=== PATIENT | female | born 1935 | race Caucasian/White ===

== ENCOUNTER 2018-11-09 07:37 | Emergency (ER) | payer MEDICARE ==
[~2018-11-09] VITALS: Ht 162.6 cm; Wt 60.2 kg
[2018-11-09 08:30] LABS: BASO # 0.1 10^3/uL (0.0-0.2); BASO % 1.5 % (0.0-1.0); EOS # 0.1 10^3/uL (0.0-0.50); EOS % 1.8 % (0.0-3.0); HEMATOCRIT 41.6 % (36.0-47.0); HEMOGLOBIN 13.7 g/dl (12.0-15.5); LYMPH # 1.2 10^3/uL (1.5-4.5); LYMPH % 14.8 % (24.0-44.0); MEAN CORPUSCULAR HGB CONC 32.9 g/dl (32.0-36.5); MEAN CORPUSCULAR VOLUME 106.4 fl (80.0-96.0); MONO # 0.5 10^3/uL (0.0-0.8); MONO % 5.9 % (0.0-5.0); NEUTROPHILS # 5.7 10^3/uL (1.8-7.7); NEUTROPHILS % 73.9 % (36.0-66.0); PLATELET COUNT, AUTOMATED 498 10^3/uL (150-450); RED BLOOD COUNT 3.91 10^6/uL (4.00-5.40); WHITE BLOOD COUNT 7.8 10^3/uL (4.0-10.0)
[2018-11-09] MEDS ORDERED: ASPI81CH33 PO (08:34)
[2018-11-09] MEDS ORDERED: LOSA50TA88 PO ×2 (08:34)
[2018-11-09] MEDS ORDERED: AMIO200T PO (08:34)
[2018-11-09 08:40] LABS: INR 0.97; PROTHROMBIN TIME 12.6 SECONDS (11.8-14.0)
--- NOTE | 2018-11-09 08:59 | REP ---
PA and lateral chest: There are no comparisons. Lung larsen are clear. Cardiac size is upper normal. There are sternotomy wires. There are bilateral shoulder arthroplasties. The bashir, mediastinum, skeletal structures are unremarkable. Impression: There are no acute cardiopulmonary findings. Electronically Signed by Giovany Rivera MD 11/09/2018 08:50 A
[2018-11-09 09:03] LABS: ALBUMIN 3.8 GM/DL (3.2-5.2); ALT/SGPT 18 U/L (12-78); BILIRUBIN,DIRECT 0.2 MG/DL (0.0-0.2); BILIRUBIN,TOTAL 0.9 MG/DL (0.2-1.0); BLOOD UREA NITROGEN 18 MG/DL (7-18); CALCIUM LEVEL 9.4 MG/DL (8.8-10.2); CARBON DIOXIDE LEVEL 25 MEQ/L (21-32); CHLORIDE LEVEL 108 MEQ/L (98-107); CK-MB VALUE MASS 1.2 NG/ML (<3.6); CPK CREATINE PHOSPHOKINASE 90 U/L (26-192); CREATININE FOR GFR 0.93 MG/DL (0.55-1.30); GLOMERULAR FILTRATION RATE > 60.0 (>32); GLUCOSE, FASTING 99 MG/DL (70-100); MB/CK RELATIVE INDEX 1.33 (< OR =4); POTASSIUM SERUM 4.7 MEQ/L (3.5-5.1); SODIUM LEVEL 141 MEQ/L (136-145); TOTAL PROTEIN 6.9 GM/DL (6.4-8.2); TROPONIN I < 0.02 NG/ML (< 0.10)
[2018-11-09] MEDS ORDERED: amLODIPine 5 MG TAB PO ONE (09:15)
[2018-11-09 09:18] VITALS: BP 197/84
--- NOTE | 2018-11-09 11:18 | REP ---
CT of the brain without IV contrast: There are no comparisons. There is no hemorrhage. There is no edema, mass effect or midline shift. The cortical stripe is unremarkable. There is mild enlargement of the ventricles and sulci compatible with diffuse volume loss. The visualized paranasal sinuses and mastoid air cells are clear. Impression: There is no hemorrhage, acute infarct or mass. Diffuse volume loss. Electronically Signed by Giovany Rivera MD 11/09/2018 11:10 A
[2018-11-09 11:59] VITALS: BP 159/77
[2018-11-09] MEDS ORDERED: NORV5TAB PO (12:01)
--- NOTE | 2018-11-10 06:53 | ECGEPIP ---
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
== END 2018-11-09 12:12 | disposition home or self-care (01) ==
LOC: M ED 07:37
DX: I10 Essential (primary) hypertension (principal); I48.91 Unspecified atrial fibrillation; E78.5 Hyperlipidemia, unspecified; Z79.82 Long term (current) use of aspirin; Z79.899 Other long term (current) drug therapy; Z88.0 Allergy status to penicillin; Z91.89 Other specified personal risk factors, not elsewhere classified

== ENCOUNTER 2018-11-11 15:48 | Emergency (ER) | payer MEDICARE ==
[~2018-11-11] VITALS: Ht 162.6 cm; Wt 59.1 kg
[~2018-11-11 15:48] MED LIST: AMIO200T PO; ASPI81CH33 PO; LOSA50TA88 PO; NORV5TAB PO
--- NOTE | 2018-11-11 16:35 | REP ---
Clinical: Hypertension. Possible CHF. Comparison: 11/09/2018 . Technique: PA and lateral. Findings: Evidence of prior sternotomy. Cardiac silhouette is stable. The lung larsen are clear and without acute consolidation, effusion, or pneumothorax. The skeletal structures are intact and normal. Impression: 1. No acute cardiopulmonary process. Electronically Signed by Johnathon Rivas MD 11/11/2018 04:27 P
[2018-11-11] MEDS ORDERED: AMLO10TA5 PO (16:41)
[2018-11-11] MEDS ORDERED: DITR5TAB PO (16:43)
[2018-11-11] MEDS ORDERED: FURO20TA2 PO (16:43)
[2018-11-11 16:52] LABS: BASO # 0.1 10^3/uL (0.0-0.2); BASO % 1.3 % (0.0-1.0); EOS % 0.2 % (0.0-3.0); HEMATOCRIT 43.4 % (36.0-47.0); HEMOGLOBIN 14.8 g/dl (12.0-15.5); LYMPH # 1.2 10^3/uL (1.5-4.5); LYMPH % 13.4 % (24.0-44.0); MEAN CORPUSCULAR HEMOGLOBIN 35.4 pg (27.0-33.0); MEAN CORPUSCULAR HGB CONC 34.1 g/dl (32.0-36.5); MEAN CORPUSCULAR VOLUME 103.8 fl (80.0-96.0); MONO # 0.5 10^3/uL (0.0-0.8); MONO % 5.9 % (0.0-5.0); NEUTROPHILS # 6.9 10^3/uL (1.8-7.7); NEUTROPHILS % 77.2 % (36.0-66.0); PLATELET COUNT, AUTOMATED 489 10^3/uL (150-450); RED BLOOD COUNT 4.18 10^6/uL (4.00-5.40); WHITE BLOOD COUNT 8.9 10^3/uL (4.0-10.0)
[2018-11-11 17:19] LABS: INR 1.03; PARTIAL THROMBOPLASTIN TIME 21.3 SECONDS (25.0-38.4); PROTHROMBIN TIME 13.2 SECONDS (11.8-14.0)
[2018-11-11 18:35] LABS: ALBUMIN 3.8 GM/DL (3.2-5.2); ALT/SGPT 20 U/L (12-78); BILIRUBIN,DIRECT 0.3 MG/DL (0.0-0.2); BILIRUBIN,TOTAL 0.7 MG/DL (0.2-1.0); BLOOD UREA NITROGEN 15 MG/DL (7-18); CALCIUM LEVEL 9.6 MG/DL (8.8-10.2); CARBON DIOXIDE LEVEL 26 MEQ/L (21-32); CHLORIDE LEVEL 104 MEQ/L (98-107); CK-MB VALUE MASS 2.6 NG/ML (<3.6); CPK CREATINE PHOSPHOKINASE 107 U/L (26-192); CREATININE FOR GFR 0.83 MG/DL (0.55-1.30); GLOMERULAR FILTRATION RATE > 60.0 (>32); GLUCOSE, FASTING 94 MG/DL (70-100); MB/CK RELATIVE INDEX 2.43 (< OR =4); POTASSIUM SERUM 4.7 MEQ/L (3.5-5.1); SODIUM LEVEL 138 MEQ/L (136-145); TROPONIN I < 0.02 NG/ML (< 0.10)
[2018-11-11 18:52] LABS: APPEARANCE, URINE CLEAR (CLEAR); BACTERIA, URINE AUTO 1+ (NEGATIVE); BILIRUBIN, URINE AUTO NEGATIVE (NEGATIVE); BLOOD, URINE BLOOD NEGATIVE (NEGATIVE); COLOR, URINE YELLOW (YELLOW); GLUCOSE, URINE (UA) AUTO NEGATIVE (NEGATIVE); KETONE, URINE AUTO TRACE mg/dL (NEGATIVE); LEUKOCYTE ESTERASE, URINE AUTO TRACE (NEGATIVE); MUCUS, URINE SMALL (NEGATIVE); NITRITE, URINE AUTO NEGATIVE (NEGATIVE); PROTEIN, URINE AUTO NEGATIVE (NEGATIVE); RBC, URINE AUTO 3 /HPF (0-3); SQUAMOUS EPITHELIAL CELL UR AU 0 /HPF (0-6); UROBILINOGEN, URINE AUTO 0.2 mg/dL (0.0-2.0); WBC, URINE AUTO 4 /HPF (0-3)
--- NOTE | 2018-11-11 18:56 | REP ---
Clinical: Right-sided chest pain. Rib pain. Technique: Axial noncontrast images from the thoracic inlet to the upper abdomen coronal and sagittal re-formations. Comparison: None. Findings: The bilateral lung larsen are relatively well aerated and essentially clear. Minimal scattered age-related interstitial changes are suggested along with mild bronchiectasis. No acute consolidation, significant nodule or mass lesion appreciated. No pleural effusion. No pneumothorax. No obvious adenopathy. Atherosclerotic changes to the thoracic aorta and coronary arteries noted. No significant pericardial effusion. Small hiatal hernia identified at the gastroesophageal junction. Surrounding musculoskeletal structures without acute abnormality. Evidence for prior bilateral shoulder replacement and sternotomy. Impression: 1. No acute mediastinal or pleuroparenchymal process appreciated. 2. Minimal chronic parenchymal changes. 3. Atherosclerotic changes to the thoracic aorta and coronary arteries. Mild cardiomegaly. 4. Osseous structures without evidence for acute process. Electronically Signed by Johnathon Rivas MD 11/11/2018 06:48 P
[2018-11-11] MEDS ORDERED: LOSARTAN 25 MG TAB PO ONE (19:45)
[2018-11-11] MEDS ORDERED: amLODIPine 5 MG TAB PO ONE (19:45)
[2018-11-11] MEDS ORDERED: TRAM50TA2 PO (19:59)
[2018-11-11] MEDS ORDERED: AMLO5TAB6 PO (19:59)
[2018-11-11] MEDS ORDERED: traMADol 50 MG TAB PO ONE (20:00)
[2018-11-11 21:01] VITALS: BP 178/82
[2018-11-11 21:10] VITALS: BP 180/90
--- NOTE | 2018-11-12 21:27 | ECGEPIP ---
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
== END 2018-11-11 21:29 | disposition home or self-care (01) ==
LOC: M ED 15:48 → EDBD 15:48 → M ED 21:29
DX: I10 Essential (primary) hypertension (principal); R07.89 Other chest pain; E78.5 Hyperlipidemia, unspecified; I48.91 Unspecified atrial fibrillation; M81.0 Age-related osteoporosis without current pathological fracture; Z79.899 Other long term (current) drug therapy; Z79.82 Long term (current) use of aspirin

== ENCOUNTER → 2020-10-11 | Outpatient (REF) | payer MEDICARE ==
[~2020-10-11] MED LIST changes: -AMIO200T PO; +AMIO200T3 PO; +AMLO1TAB24 PO; +AMLO1TAB25 PO; +DITR5TAB PO; +FURO20TA2 PO; +TRAM50TA2 PO
== END ==
LOC: M LAB REF 16:26
PROVIDERS: ATTEND Internal Medicine
DX: R71.8 Other abnormality of red blood cells (principal)

== ENCOUNTER 2021-02-19 08:14 | Emergency (ER) | payer MEDICARE ==
[~2021-02-19] VITALS: Ht 162.6 cm; Wt 60.0 kg
[2021-02-19 09:08] LABS: BASO # 0.2 10^3/uL (0.0-0.2); EOS # 0.2 10^3/uL (0.0-0.5); EOS % 2.4 % (0.0-3.0); HEMATOCRIT 44.2 % (36.0-47.0); HEMOGLOBIN 14.9 g/dl (12.0-15.5); LYMPH # 1.1 10^3/uL (1.5-5.0); LYMPH % 13.7 % (24.0-44.0); MEAN CORPUSCULAR HEMOGLOBIN 34.2 pg (27.0-33.0); MEAN CORPUSCULAR HGB CONC 33.7 g/dl (32.0-36.5); MEAN CORPUSCULAR VOLUME 101.4 fl (80.0-96.0); MONO # 0.4 10^3/uL (0.0-0.8); MONO % 5.6 % (2.0-8.0); NEUTROPHILS # 5.6 10^3/uL (1.5-8.5); PLATELET COUNT, AUTOMATED 596 10^3/uL (150-450); RED BLOOD COUNT 4.36 10^6/uL (4.00-5.40); WHITE BLOOD COUNT 7.6 10^3/uL (4.0-10.0)
[2021-02-19] MEDS ORDERED: cloNIDine 0.2 MG TAB PO ONE (10:30)
[2021-02-19 10:55] LABS: ALBUMIN 3.7 GM/DL (3.2-5.2); ALT/SGPT 20 U/L (12-78); BILIRUBIN,DIRECT 0.3 MG/DL (0.0-0.2); BILIRUBIN,TOTAL 0.9 MG/DL (0.2-1.0); BLOOD UREA NITROGEN 18 MG/DL (7-18); CALCIUM LEVEL 9.4 MG/DL (8.8-10.2); CARBON DIOXIDE LEVEL 28 MEQ/L (21-32); CHLORIDE LEVEL 108 MEQ/L (98-107); CREATININE FOR GFR 0.88 MG/DL (0.55-1.30); GLOMERULAR FILTRATION RATE > 60.0 (>32); GLUCOSE, FASTING 101 MG/DL (70-100); POTASSIUM SERUM 4.4 MEQ/L (3.5-5.1); SODIUM LEVEL 141 MEQ/L (136-145); TOTAL PROTEIN 6.6 GM/DL (6.4-8.2)
[2021-02-19 11:31] LABS: APPEARANCE, URINE CLEAR (CLEAR); BACTERIA, URINE AUTO 1+ (NEGATIVE); BILIRUBIN, URINE AUTO NEGATIVE (NEGATIVE); BLOOD, URINE BLOOD 1+ (NEGATIVE); COLOR, URINE YELLOW (YELLOW); GLUCOSE, URINE (UA) AUTO NEGATIVE (NEGATIVE); KETONE, URINE AUTO NEGATIVE (NEGATIVE); LEUKOCYTE ESTERASE, URINE AUTO NEGATIVE (NEGATIVE); MUCUS, URINE SMALL (NEGATIVE); NITRITE, URINE AUTO NEGATIVE (NEGATIVE); PROTEIN, URINE AUTO NEGATIVE (NEGATIVE); RBC, URINE AUTO 1 /HPF (0-3); SPECIFIC GRAVITY URINE AUTO 1.008 (1.002-1.035); SQUAMOUS EPITHELIAL CELL UR AU 0 /HPF (0-6); UROBILINOGEN, URINE AUTO 0.2 mg/dL (0.0-2.0); WBC, URINE AUTO 1 /HPF (0-3)
[2021-02-19 11:34] VITALS: BP 176/76
[2021-02-19 13:00] VITALS: BP 124/64
--- NOTE | 2021-02-19 20:40 | ECGEPIP ---
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
== END 2021-02-19 13:31 | disposition home or self-care (01) ==
LOC: M ED 08:14
DX: R00.1 Bradycardia, unspecified (principal); I10 Essential (primary) hypertension; I48.91 Unspecified atrial fibrillation; E78.5 Hyperlipidemia, unspecified; I25.10 Atherosclerotic heart disease of native coronary artery without angina pectoris; Z95.1 Presence of aortocoronary bypass graft; Z88.2 Allergy status to sulfonamides; Z79.899 Other long term (current) drug therapy; Z79.82 Long term (current) use of aspirin

== ENCOUNTER 2021-10-05 10:33 | Emergency (ER) | payer MEDICARE ==
[~2021-10-05] VITALS: Ht 162.6 cm; Wt 56.4 kg
[~2021-10-05 10:33] MED LIST changes: -AMIO200T3 PO; +AMIO200T49 PO; +LOSA50TA28 PO; -LOSA50TA88 PO
[2021-10-05] MEDS ORDERED: ATOR1TAB19 (10:42)
[2021-10-05] MEDS ORDERED: HYDR500C3 (10:43)
[2021-10-05 14:47] LABS: BASO # 0.1 10^3/uL (0.0-0.2); BASO % 0.9 % (0.0-1.0); EOS % 0.2 % (0.0-3.0); HEMATOCRIT 42.3 % (36.0-47.0); HEMOGLOBIN 14.4 g/dl (12.0-15.5); LYMPH # 0.8 10^3/uL (1.5-5.0); LYMPH % 12.6 % (24.0-44.0); MEAN CORPUSCULAR HEMOGLOBIN 39.3 pg (27.0-33.0); MONO # 0.3 10^3/uL (0.0-0.8); MONO % 5.3 % (2.0-8.0); NEUTROPHILS # 5.1 10^3/uL (1.5-8.5); NEUTROPHILS % 79.7 % (36.0-66.0); PLATELET COUNT, AUTOMATED 357 10^3/uL (150-450); RED BLOOD COUNT 3.66 10^6/uL (4.00-5.40); WHITE BLOOD COUNT 6.4 10^3/uL (4.0-10.0)
[2021-10-05 14:58] LABS: PROTHROMBIN TIME 13.6 SECONDS (12.7-14.5)
[2021-10-05 14:59] LABS: PARTIAL THROMBOPLASTIN TIME 30.1 SECONDS (25.9-37.0)
[2021-10-05 15:01] LABS: MEAN CORPUSCULAR VOLUME 115.6 fl (80.0-96.0)
[2021-10-05 15:09] LABS: CK-MB VALUE MASS 2.9 NG/ML (<3.6); MB/CK RELATIVE INDEX 2.34 (< OR =4)
[2021-10-05 15:17] LABS: MAGNESIUM LEVEL 2.2 MG/DL (1.8-2.4); THYROID STIMULATING HORMONE 2.38 uIU/ML (0.358-3.740); THYROXINE (T4) 16.5 UG/DL (4.5-12.0)
[2021-10-05 15:20] LABS: RSV AMPLIFICATION NEGATIVE (NEGATIVE)
[2021-10-05] MEDS ORDERED: NS 500 ML IV ONE (15:30)
[2021-10-05 15:35] LABS: PLATELET ESTIMATE NORMAL (NORMAL)
[2021-10-05 16:00] LABS: APPEARANCE, URINE CLEAR (CLEAR); BACTERIA, URINE AUTO NEGATIVE (NEGATIVE); BILIRUBIN, URINE AUTO NEGATIVE (NEGATIVE); BLOOD, URINE BLOOD NEGATIVE (NEGATIVE); COLOR, URINE YELLOW (YELLOW); GLUCOSE, URINE (UA) AUTO NEGATIVE (NEGATIVE); KETONE, URINE AUTO TRACE mg/dL (NEGATIVE); LEUKOCYTE ESTERASE, URINE AUTO TRACE (NEGATIVE); MUCUS, URINE SMALL (NEGATIVE); NITRITE, URINE AUTO NEGATIVE (NEGATIVE); PROTEIN, URINE AUTO NEGATIVE (NEGATIVE); RBC, URINE AUTO 2 /HPF (0-3); SPECIFIC GRAVITY URINE AUTO 1.011 (1.002-1.035); SQUAMOUS EPITHELIAL CELL UR AU 0 /HPF (0-6); UROBILINOGEN, URINE AUTO 0.2 mg/dL (0.0-2.0); WBC, URINE AUTO 4 /HPF (0-3)
[2021-10-05 16:48] LABS: POTASSIUM SERUM 4.5 MEQ/L (3.5-5.1)
[2021-10-05 17:14] VITALS: BP 178/91
[2021-10-05] MEDS ORDERED: diazePAM 10MG/2ML SYRINGE (J3360 PER 5MG) IV ONE (18:50)
== END 2021-10-05 20:01 | disposition home or self-care (01) ==
LOC: M ED 10:33
DX: R53.1 Weakness (principal); R06.02 Shortness of breath; I10 Essential (primary) hypertension; I48.0 Paroxysmal atrial fibrillation; I71.2 Thoracic aortic aneurysm, without rupture; Z88.0 Allergy status to penicillin; Z79.899 Other long term (current) drug therapy; Z79.82 Long term (current) use of aspirin

== ENCOUNTER → 2023-10-28 | Outpatient (REF) | payer MEDICARE ==
[~2023-10-28] MED LIST changes: +ATOR1TAB19; +HYDR500C3
== END ==
LOC: M LAB REF 14:49
PROVIDERS: ATTEND Internal Medicine
DX: I12.9 Hypertensive chronic kidney disease with stage 1 through stage 4 chronic kidney disease, or unspecified chronic kidney disease (principal); M48.07 Spinal stenosis, lumbosacral region; N18.31 Chronic kidney disease, stage 3a

== ENCOUNTER 2024-03-25 18:01 | Emergency (ER) | payer MEDICARE ==
[~2024-03-25] VITALS: Ht 165.1 cm; Wt 52.7 kg
[2024-03-25 18:04] VITALS: TEMP 98.5
[2024-03-25] MEDS ORDERED: AMIO200T37 (18:26)
[2024-03-25] MEDS ORDERED: OXYB5TAB14 (18:26)
[2024-03-25 19:21] LABS: BASO # 0.1 10^3/uL (0.0-0.2); EOS % 0.6 % (0.0-3.0); HEMATOCRIT 36.7 % (36.0-47.0); HEMOGLOBIN 12.6 g/dl (12.0-15.5); LYMPH # 0.8 10^3/uL (1.5-5.0); LYMPH % 12.1 % (24.0-44.0); MEAN CORPUSCULAR HGB CONC 34.3 g/dl (32.0-36.5); MONO # 0.5 10^3/uL (0.0-0.8); MONO % 6.7 % (2.0-8.0); NEUTROPHILS # 5.4 10^3/uL (1.5-8.5); NEUTROPHILS % 78.3 % (36.0-66.0); PLATELET COUNT, AUTOMATED 371 10^3/uL (150-450); RED BLOOD COUNT 3.15 10^6/uL (4.00-5.40); WHITE BLOOD COUNT 6.8 10^3/uL (4.0-10.0)
[2024-03-25 19:24] LABS: MEAN CORPUSCULAR VOLUME 116.5 fl (80.0-96.0)
[2024-03-25] MEDS: LOSARTAN 50MG TABLET PO ONE ×2 (19:37→22:22)
[2024-03-25 19:40] LABS: ALBUMIN 3.7 G/DL (3.2-5.2); BILIRUBIN,DIRECT 0.2 MG/DL (<0.4); BILIRUBIN,TOTAL 0.7 MG/DL (0.3-1.2); CALCIUM LEVEL 9.9 MG/DL (8.3-10.6); CREATININE FOR GFR 0.99 MG/DL (0.55-1.30); GLOMERULAR FILTRATION RATE 56.4 (>32); POTASSIUM SERUM 4.3 MMOL/L (3.5-5.1); TOTAL PROTEIN 6.8 G/DL (5.7-8.2)
[2024-03-25] MEDS ORDERED: HYDR-643 PO (20:10)
[2024-03-25 20:23] LABS: TEAR DROP CELLS 1+
[2024-03-25 20:24] LABS: CK-MB VALUE MASS 1.5 NG/ML (<3.6)
[2024-03-25 20:25] LABS: MB/CK RELATIVE INDEX 1.44 (< OR =4)
[2024-03-25 20:26] LABS: SCHISTOCYTES 1+
[2024-03-25 20:28] LABS: PLATELET ESTIMATE NORMAL (NORMAL)
[2024-03-25 22:00] VITALS: O2SAT 98
[2024-03-25 22:02] VITALS: BP 162/74
== END 2024-03-25 22:31 | disposition home or self-care (01) ==
LOC: M ED 18:01
DX: F41.9 Anxiety disorder, unspecified (principal); I10 Essential (primary) hypertension; I44.7 Left bundle-branch block, unspecified; M81.0 Age-related osteoporosis without current pathological fracture; I51.7 Cardiomegaly; I48.91 Unspecified atrial fibrillation; I25.10 Atherosclerotic heart disease of native coronary artery without angina pectoris; E78.5 Hyperlipidemia, unspecified; Z95.828 Presence of other vascular implants and grafts; Z96.619 Presence of unspecified artificial shoulder joint; Z96.643 Presence of artificial hip joint, bilateral; Z79.82 Long term (current) use of aspirin; Z79.899 Other long term (current) drug therapy; Z88.0 Allergy status to penicillin; Z88.3 Allergy status to other anti-infective agents

== ENCOUNTER 2025-02-28 10:19 | Emergency (ER) | payer MEDICARE ==
[~2025-02-28] VITALS: Ht 165.1 cm; Wt 53.2 kg
[~2025-02-28 10:19] MED LIST changes: +AMIO200T37; -AMIO200T49 PO; +AMIO200T54 PO; +AMIODARONE 100 MG TABLET PO SCH; +ENTRESTO 24-26 MG TABLET (SACUBITRIL/VALSARTAN) PO SCH; +HYDR-643 PO; +HYDROXYUREA 500 MG CAP PO SCH; +OXYB5TAB14; +oxyBUTYnin *XL* 5 MG TAB PO SCH
[2025-02-28] MEDS ORDERED: ENTR1TAB (10:45)
[2025-02-28 10:53] LABS: BASO # 0.1 10^3/uL (0.0-0.2); BASO % 0.7 % (0.0-1.0); EOS # 0.0 10^3/uL (0.0-0.5); EOS % 0.1 % (0.0-3.0); LYMPH # 0.8 10^3/uL (1.5-5.0); LYMPH % 7.5 % (24.0-44.0); MONO # 0.9 10^3/uL (0.0-0.8); MONO % 7.9 % (2.0-8.0); NEUTROPHILS # 9.2 10^3/uL (1.5-8.5); NEUTROPHILS % 81.7 % (36.0-66.0); PLATELET COUNT, AUTOMATED 667 10^3/uL (150-450)
[2025-02-28] MEDS: ACETAMINOPHEN *IV* 1,000 MG in IV 1 EA IV ONE (10:55)
[2025-02-28 11:11] LABS: ALT/SGPT 15.0 U/L (7.0-40); AST/SGOT 24.0 U/L (<34); CALCIUM LEVEL 9.8 MG/DL (8.3-10.6); CARBON DIOXIDE LEVEL 26.0 MMOL/L (20-31); CHLORIDE LEVEL 97.0 MMOL/L (98-107); CK-MB VALUE MASS 1.5 NG/ML (<3.6); CREATININE FOR GFR 0.75 MG/DL (0.55-1.30); GLOMERULAR FILTRATION RATE 76.1 (>32); POTASSIUM SERUM 3.9 MMOL/L (3.5-5.1); SODIUM LEVEL 135.0 MMOL/L (136-145)
[2025-02-28 11:21] LABS: CPK CREATINE PHOSPHOKINASE 69.0 U/L (34-145); MB/CK RELATIVE INDEX 2.17 (< OR =4)
[2025-02-28] MEDS: FUROSEMIDE 20 MG TAB PO ONE (11:26)
[2025-02-28] MEDS: ENTRESTO 24-26 MG TABLET (SACUBITRIL/VALSARTAN) PO ONE (11:30)
[2025-02-28] MEDS: AMIODARONE 100 MG TABLET PO ONE (11:30)
[2025-02-28] MEDS: HYDROXYUREA 500 MG CAP PO ONE (11:30)
[2025-02-28 12:24] LABS: CK-MB VALUE MASS 1.6 NG/ML (<3.6)
[2025-02-28 12:26] LABS: CPK CREATINE PHOSPHOKINASE 53.0 U/L (34-145); MB/CK RELATIVE INDEX 3.01 (< OR =4)
[2025-02-28 12:45] VITALS: BP 174/88; TEMP 98.9; O2SAT 98
== END 2025-02-28 13:04 | disposition home or self-care (01) ==
LOC: M ED 10:19
DX: R07.9 Chest pain, unspecified (principal); I44.7 Left bundle-branch block, unspecified; I10 Essential (primary) hypertension; I70.0 Atherosclerosis of aorta; E78.5 Hyperlipidemia, unspecified; Z86.79 Personal history of other diseases of the circulatory system; Z88.0 Allergy status to penicillin; Z91.041 Radiographic dye allergy status; Z79.82 Long term (current) use of aspirin; Z79.02 Long term (current) use of antithrombotics/antiplatelets; Z79.899 Other long term (current) drug therapy; Z95.1 Presence of aortocoronary bypass graft; Z96.611 Presence of right artificial shoulder joint; Z96.612 Presence of left artificial shoulder joint
CPT/HCPCS: 71045; 80048; 80076; 82550; 82553; 83690; 84443; 84484; 85025; 93005; 93041; 94760; 96374; 99285; J0131

== ENCOUNTER → 2025-03-11 | Outpatient (CLI) | payer MEDICARE ==
[~2025-03-11] MED LIST changes: -AMIODARONE 100 MG TABLET PO SCH; +ASPI81TA26 PO; -ATOR1TAB19; +ATOR1TAB19 PO; +ENTR1TAB PO; -ENTRESTO 24-26 MG TABLET (SACUBITRIL/VALSARTAN) PO SCH; -HYDR500C3; +HYDR500C3 PO; -HYDROXYUREA 500 MG CAP PO SCH; -OXYB5TAB14; +OXYB5TAB14 PO; -oxyBUTYnin *XL* 5 MG TAB PO SCH
== END ==
LOC: M WUC 11:25
PROVIDERS: ATTEND Internal Medicine
DX: M79.652 Pain in left thigh (principal); Z96.642 Presence of left artificial hip joint

== ENCOUNTER 2025-03-13 10:40 | Observation (INO) | payer MEDICARE ==
[~2025-03-13] VITALS: Ht 165.1 cm; Wt 53.6 kg
[~2025-03-13 10:40] MED LIST changes: -ASPI81TA26 PO
[2025-03-13] MEDS ORDERED: LIDOCAINE 2% 5 ML JELLY UROJET TOP ONE ×2 (11:40→12:45)
[2025-03-13 12:14] LABS: BASO # 0.1 10^3/uL (0.0-0.2); BASO % 0.8 % (0.0-1.0); EOS # 0.0 10^3/uL (0.0-0.5); EOS % 0.2 % (0.0-3.0); LYMPH # 0.6 10^3/uL (1.5-5.0); LYMPH % 5.3 % (24.0-44.0); MONO # 0.8 10^3/uL (0.0-0.8); MONO % 8.1 % (2.0-8.0); NEUTROPHILS # 8.4 10^3/uL (1.5-8.5); NEUTROPHILS % 81.8 % (36.0-66.0); PLATELET COUNT, AUTOMATED 494 10^3/uL (150-450)
[2025-03-13 12:40] LABS: ALT/SGPT 15.0 U/L (7.0-40); AST/SGOT 23.0 U/L (<34); CALCIUM LEVEL 9.0 MG/DL (8.3-10.6); CARBON DIOXIDE LEVEL 26.0 MMOL/L (20-31); CHLORIDE LEVEL 99.0 MMOL/L (98-107); CREATININE FOR GFR 0.82 MG/DL (0.55-1.30); GLOMERULAR FILTRATION RATE 68.3 (>32); POTASSIUM SERUM 4.2 MMOL/L (3.5-5.1); SODIUM LEVEL 133.0 MMOL/L (136-145)
[2025-03-13 12:42] LABS: FREE T4 1.71 NG/DL (0.89-1.76)
[2025-03-13 13:43] LABS: KETONE, URINE AUTO RFX TRACE mg/dL (NEGATIVE); LEUKOCYTE ESTERASE UR AUTO RFX NEGATIVE (NEGATIVE); NITRITE, URINE AUTO RFX NEGATIVE (NEGATIVE); RBC, URINE AUTO RFX 0 /HPF (0-3); SQUAM EPITHELIAL CELL UR AURFX 0 /HPF (0-6); WBC, URINE AUTO RFX 2 /HPF (0-3)
[2025-03-13] MEDS ORDERED: ASPI81TA26 PO (14:38)
[2025-03-13] MEDS ORDERED: HOME MED LIST COMPLETE! XX SCH (14:40)
[2025-03-13] MEDS ORDERED: MIRALAX *UNIT DOSE* 17 GM PACKET PO PRN (15:50)
[2025-03-13] MEDS ORDERED: SENNA 8.6 MG TAB PO PRN (15:50)
[2025-03-13] MEDS ORDERED: PILL CUTTER 1 EACH XX ONE (17:04)
[2025-03-13] MEDS: ATORVASTATIN 10 MG TAB PO SCH (17:07)
[2025-03-13] MEDS: AMIODARONE 200 MG TAB PO SCH (17:07)
[2025-03-13 17:22] VITALS: BP 151/79; TEMP 97; O2SAT 98
[2025-03-13] MEDS: HYDROXYUREA 500 MG CAP PO SCH (18:06)
[2025-03-13 20:06] VITALS: BP 134/71; TEMP 97.3; O2SAT 98
[2025-03-13] MEDS: ENTRESTO 24-26 MG TABLET (SACUBITRIL/VALSARTAN) PO SCH (21:04)
[2025-03-14] MEDS: ACETAMINOPHEN 325 MG TAB PO PRN (02:15)
[2025-03-14 05:31] VITALS: BP 133/68; TEMP 97.2; O2SAT 99
[2025-03-14 07:29] LABS: PLATELET COUNT, AUTOMATED 458 10^3/uL (150-450)
[2025-03-14 07:53] LABS: CALCIUM LEVEL 8.5 MG/DL (8.3-10.6); CARBON DIOXIDE LEVEL 25.0 MMOL/L (20-31); CHLORIDE LEVEL 100.0 MMOL/L (98-107); CREATININE FOR GFR 0.85 MG/DL (0.55-1.30); GLOMERULAR FILTRATION RATE 65.5 (>32); POTASSIUM SERUM 4.3 MMOL/L (3.5-5.1); SODIUM LEVEL 136.0 MMOL/L (136-145)
[2025-03-14 08:35] VITALS: BP 154/74
[2025-03-14] MEDS: ASPIRIN 81 MG ENTERIC TABLET PO SCH (08:35)
[2025-03-14] MEDS: FUROSEMIDE 20 MG/2 ML VIAL IV ONE (08:35)
[2025-03-14] MEDS: HEPARIN SOD 5000 UNITS/ML 1 ML VIAL/SYRINGE SQ SCH (08:35)
[2025-03-14] MEDS: ALPRAZolam 0.25 MG TAB PO PRN (09:46)
[2025-03-14 11:55] VITALS: BP 124/67; TEMP 97; O2SAT 93
[2025-03-14 20:00] VITALS: BP 119/67; TEMP 97.3; O2SAT 94
[2025-03-15 04:00] VITALS: BP 145/91; TEMP 97.3; O2SAT 95
[2025-03-15 06:48] LABS: CALCIUM LEVEL 9.3 MG/DL (8.3-10.6); CARBON DIOXIDE LEVEL 24.0 MMOL/L (20-31); CHLORIDE LEVEL 99.0 MMOL/L (98-107); CREATININE FOR GFR 0.85 MG/DL (0.55-1.30); GLOMERULAR FILTRATION RATE 65.5 (>32); POTASSIUM SERUM 4.3 MMOL/L (3.5-5.1); SODIUM LEVEL 134.0 MMOL/L (136-145)
[2025-03-15 11:48] VITALS: BP 110/59; TEMP 97.7; O2SAT 94
[2025-03-15] MEDS ORDERED: diphenhydrAMINE 50 MG/ML VIAL IM ONE (12:30)
[2025-03-15] MEDS ORDERED: diphenhydrAMINE 50 MG/ML VIAL IV ONE (12:30)
[2025-03-15 20:12] VITALS: BP 136/71; TEMP 97.3; O2SAT 94
[2025-03-16 03:38] VITALS: BP 125/58; TEMP 97.3; O2SAT 95
[2025-03-16 06:37] LABS: PLATELET COUNT, AUTOMATED 565 10^3/uL (150-450)
[2025-03-16 07:08] LABS: ALT/SGPT 16.0 U/L (7.0-40); AST/SGOT 21.0 U/L (<34); CALCIUM LEVEL 10.2 MG/DL (8.3-10.6); CARBON DIOXIDE LEVEL 23.0 MMOL/L (20-31); CHLORIDE LEVEL 100.0 MMOL/L (98-107); CREATININE FOR GFR 0.89 MG/DL (0.55-1.30); GLOMERULAR FILTRATION RATE 61.9 (>32); POTASSIUM SERUM 4.5 MMOL/L (3.5-5.1); SODIUM LEVEL 135.0 MMOL/L (136-145)
[2025-03-16 09:28] VITALS: BP 108/67
[2025-03-16 12:18] VITALS: BP 112/58; TEMP 97.2; O2SAT 98
[2025-03-16 19:35] VITALS: BP 124/64; TEMP 97.3; O2SAT 96
[2025-03-17 04:23] VITALS: BP 120/46; TEMP 97.9; O2SAT 98
== END 2025-03-17 11:20 ==
LOC: M ED 10:40 → M ED INP 10:41 → M MSPAV 17:22
PROVIDERS: ADMIT Student in an Organized Health Care Education/Training Program; ATTEND Student in an Organized Health Care Education/Training Program
DX: R26.89 Other abnormalities of gait and mobility (principal); R54 Age-related physical debility; I11.0 Hypertensive heart disease with heart failure; I48.91 Unspecified atrial fibrillation; M25.552 Pain in left hip; M85.88 Other specified disorders of bone density and structure, other site; I50.9 Heart failure, unspecified; R94.31 Abnormal electrocardiogram [ECG] [EKG]; M19.90 Unspecified osteoarthritis, unspecified site; S02.119A Unspecified fracture of occiput, initial encounter for closed fracture; X58.XXXA Exposure to other specified factors, initial encounter; Z95.1 Presence of aortocoronary bypass graft; Z96.642 Presence of left artificial hip joint; Z96.611 Presence of right artificial shoulder joint; Z96.612 Presence of left artificial shoulder joint; Z88.0 Allergy status to penicillin; Z88.8 Allergy status to other drugs, medicaments and biological substances; Z79.899 Other long term (current) drug therapy; Z79.82 Long term (current) use of aspirin
CPT/HCPCS: 36415; 70450; 71045; 72125; 72190; 73502; 73552; 73700; 80048; 80053; 80076; 81001; 84439; 84443; 84484; 85025; 85027; 85379; 87426; 87486; 87581; 87633; 87798; 93005; 93041; 93306; 94760; 96372; 96374; 97116; 97161; 97165; 97530; 97535; 99285; G0378; J1938

== ENCOUNTER → 2025-03-19 | Outpatient (REF) | payer MEDICARE ==
[~2025-03-19] MED LIST changes: +ASPI81TA26 PO
[2025-03-19 09:18] LABS: PLATELET COUNT, AUTOMATED 570 10^3/uL (150-450)
[2025-03-19 09:40] LABS: CALCIUM LEVEL 8.9 MG/DL (8.3-10.6); CARBON DIOXIDE LEVEL 23.0 MMOL/L (20-31); CHLORIDE LEVEL 98.0 MMOL/L (98-107); CHOLESTEROL LEVEL 142.0 MG/DL (<200); CHOLESTEROL RISK RATIO 2.21 (<5); CREATININE FOR GFR 0.79 MG/DL (0.55-1.30); GLOMERULAR FILTRATION RATE 71.5 (>32); LDL CHOLESTEROL 66.0 MG/DL (<100); NON-HDL-C 78.0 MG/DL; POTASSIUM SERUM 4.6 MMOL/L (3.5-5.1); SODIUM LEVEL 132.0 MMOL/L (136-145); TRIGLYCERIDES LEVEL 60.0 MG/DL (<150)
== END ==
PROVIDERS: ATTEND Internal Medicine
DX: Z02.2 Encounter for examination for admission to residential institution (principal); Z79.899 Other long term (current) drug therapy

== ENCOUNTER → 2025-04-26 | Outpatient (REF) | PROVIDERS: ATTEND Internal Medicine | DX: I10 Essential (primary) hypertension (principal); Z79.899 Other long term (current) drug therapy ==